=== PATIENT | male | born 1990 | race Caucasian/White ===

== ENCOUNTER 2018-01-11 06:16 | Emergency (ER) | payer SELFPAY ==
[~2018-01-11] VITALS: Ht 162.6 cm; Wt 68.0 kg
[2018-01-11] MEDS ORDERED: ONDANSETRON HCL/PF 4 MG/2 ML VIAL ONE (06:27)
[2018-01-11] MEDS ORDERED: DEXTROSE 50%-WATER 50 ML DISP.SYRIN ONE (06:27)
--- NOTE | 2018-01-11 06:28 | NUR ---
BIBRA 58 FROM HOME, C/O "WEAKNESS AND FEELING SICK/DISORIENTED" S/P DRINKING MORE THAN USUAL. FIELD BS 49, RA GAVE GLUCOSE PASTE, BS RECHECK 61 IN FIELD. PT VOMITTED 2 TIMES UPON ARRIVAL TO ED. PT STATES + N/V UPON ARRIVAL AND "FEELING DIZZY/DISORIENTED". SKIN WNL. VSS. PT IS AAOX4. PT DENIES ANY HX OF DIABETES. PT PLACED ON BILINGUAL OFFICE ASSISTANT AND POX. PT SAFETY AND COMFORT MEASURES IN PLACE. PT'S GIRLFRIEND BEDSIDE. AWAITING MD FOR EVAL
[2018-01-11] MEDS ORDERED: DEXTROSE 50%-WATER 50 ML DISP.SYRIN IVP ONE (06:30)
[2018-01-11] MEDS ORDERED: ONDANSETRON HCL/PF 4 MG/2 ML VIAL IV ONE (06:30)
[2018-01-11] MEDS ORDERED: IV NS 0.9% 1,000 ML BAG IV ONE (06:30)
--- NOTE | 2018-01-11 06:59 | NUR ---
RONALDO HACKETT AND ICE CHIPS PROVIDED TO PT PER 'S REQUESTS
[2018-01-11 07:17] LABS: BASOPHILS % (AUTO) 0.3 % (0.0-2.0); EOSINOPHILS % (AUTO) 0.2 % (0.0-6.0); HEMATOCRIT 47 % (39-51); HEMOGLOBIN 15.8 g/dL (13.5-17.5); LYMPHOCYTES # (AUTO) 1.7 /CMM (0.8-4.8); LYMPHOCYTES % (AUTO) 14.1 % (20.0-44.0); MEAN CORPUSCULAR HEMOGLOBIN 32 PG (26.0-33.0); MEAN CORPUSCULAR HGB CONC 33 g/dl (31.0-36.0); MEAN CORPUSCULAR VOLUME 95 fL (80-96); MONOCYTES # (AUTO) 0.3 /CMM (0.1-1.30); MONOCYTES % (AUTO) 2.9 % (2.0-12.0); NEUTROPHILS # (AUTO) 9.8 /CMM (1.8-8.9); NEUTROPHILS % (AUTO) 82.5 % (43.0-81.0); PLATELET COUNT (AUTO) 227 /CMM (150-450); RDW COEFFICIENT OF VARIATION 13.4 (11.5-15.0); RED BLOOD CELL COUNT(AUTO) 4.97 MIL/uL (4.5-6.0); WHITE BLOOD COUNT (AUTO) 11.8 K/uL (4.3-11.0)
--- NOTE | 2018-01-11 07:22 | NUR ---
RECEIVED REPORT FOR MARIE.
--- NOTE | 2018-01-11 07:22 | NUR ---
REPORT GIVEN TO OPAL NAVARRO FOR MARIE
[2018-01-11 07:25] LABS: CALCIUM, SERUM 9.2 mg/dL (8.5-10.1); CREATININE 0.9 mg/dL (0.6-1.3); POTASSIUM 3.1 mmol/L (3.5-5.1)
[2018-01-11 07:34] LABS: BILIRUBIN,DIRECT 0.1 mg/dL (0.0-0.2); BILIRUBIN,TOTAL 0.4 mg/dL (0.2-1.0); TOTAL PROTEIN, SERUM 9.8 g/dL (6.4-8.2)
[2018-01-11 08:35] VITALS: BP 130/86
--- NOTE | 2018-01-11 08:36 | NUR ---
IV removed. Catheter intact and site benign. Pressure and 4x4 applied to site. No bleeding noted. Patient discharged to home in stable condition. Written and verbal after care instructions given. Patient verbalizes understanding of instruction.
== END 2018-01-11 08:36 | disposition home or self-care (01) ==
LOC: ER 06:22
DX: K29.20 Alcoholic gastritis without bleeding (principal); F10.10 Alcohol abuse, uncomplicated; I10 Essential (primary) hypertension
CPT/HCPCS: 36415; 80048; 80076; 82962 ×3; 83690; 85025; 96361; 96374; 96375; 99284; A4606; J2405; J7030; Z7610